=== PATIENT | female | born 1960 | race Caucasian/White ===

== ENCOUNTER → 2018-04-11 08:00 | Outpatient (CLI) | payer OTHER ==
[2014-08-28 13:37] VITALS: BMI 30.8
[~2018-04-11 08:00] MED LIST: ACCURETIC 20-121 TAB PO; BAYER CHEWABLE81 MG PO; DESERYL100 MG PO; DETROL LA4 MG PO; DULERA 100 MCG8.8 GM INH; FLOVENT DI50 MCG/DIS INH; FLUTICASONE PRO16 GM NS; GLUCOPHAGE1000 MG PO; JANUVIA100 MG PO; LIPITOR10 MG PO; LOVENOX40 MG/0.4 SQ; MULTIPLE VITAMI1 TA1 PO; NITROSTAT0.4 MG SL; PERCOCET 10/3251 TA1 PO; PROVENTIL HFA6.7 GM INH; PROZAC40 MG PO; RESTORIL15 MG PO; SOMA350 MG PO
== END | disposition home or self-care (01) ==
LOC: D.MAMMO 08:00
DX: Z12.31 Encounter for screening mammogram for malignant neoplasm of breast (principal)

== ENCOUNTER 2019-03-19 06:30 | Day surgery (SDC) | payer OTHER ==
[2019-03-16 12:26] LABS: HEMATOCRIT 39.8 % (36.0-48.0); HEMOGLOBIN 13.3 g/dL (12-16); MCH 27.9 pg (26.0-34.0); MCHC 33.4 g/dL (31.0-37.0); MCV 83.6 fL (80.0-100.0); MEAN PLATELET VOLUME 9.3 fL (7.4-10.4); RBC 4.76 10x6/uL (4.00-5.40); WBC 8.1 10x3/uL (4.8-10.8)
[2019-03-16 12:28] LABS: CALC OSMOLALITY 272 mosm/kg (275-300); CALCIUM 9.3 mg/dL (8.5-10.1); CARBON DIOXIDE 26.8 mmol/L (21.0-32.0); CHLORIDE - SERUM 99 mmol/L (98-107); CREATININE - SERUM 0.6 mg/dL (0.6-1.3); POTASSIUM - SERUM 3.7 mmol/L (3.5-5.1); SODIUM 137 mmol/L (136-145); UREA NITROGEN 6 mg/dL (7-18); eGFR NON AFRICAN AMERICAN > 90 mL/min (90-120)
[2019-03-16 12:30] LABS: GLUCOSE 112 mg/dL (74-106)
[~2019-03-19] VITALS: Ht 154.9 cm; Wt 71.7 kg
[~2019-03-19 06:30] MED LIST changes: +ATIVAN1 MG PO; +BACLOFEN20 M1 PO; +CBD OIL PO; +CHROMIUM PICO200 MC1 PO; +HYDRALAZINE HCL50 MG PO; +LIPITOR20 MG PO; +MERIBIN5 MG PO; +NORVASC10 MG PO; +SINGULAIR10 MG PO; +TRAMADOL HCL E100 M1 PO; +TRAZODONE HCL150 MG PO
[2019-03-19 07:30] VITALS: BP 141/80; Ht 154.9 cm; Wt 71.7 kg
[2019-03-19] MEDS ORDERED: HYDROCODON-ACE1 EAC7 PO (10:11)
[2019-03-19] MEDS ORDERED: CLEOCIN HCL300 MG PO (10:12)
--- NOTE | 2019-03-19 12:10 | NUR ---
1215 ICE PACKS PROVIDED FOR PT'S ABDOMEN, EXPLAINED TO BE INTERMITTANT, PT. EATING ICE CHIPS, DENIES NAUSEA.
== END 2019-03-19 13:10 | disposition home or self-care (01) ==
LOC: D.OPS 06:30 → D.PAN 08:15 → D.OPS 08:15
PROVIDERS: Anesthesiology; ATTEND Surgery
DX: K43.2 Incisional hernia without obstruction or gangrene (principal); Z01.812 Encounter for preprocedural laboratory examination

== ENCOUNTER → 2020-12-31 23:52 | Outpatient (CLI) | payer OTHER ==
[2019-03-19 07:30] VITALS: BMI 29.9
[~2020-12-31 23:52] MED LIST changes: +CLEOCIN HCL300 MG PO; +HYDROCODON-ACE1 EAC7 PO
== END | disposition home or self-care (01) ==
LOC: D.MAMMO 13:30
PROVIDERS: ATTEND Family Medicine Adult Medicine
DX: Z12.31 Encounter for screening mammogram for malignant neoplasm of breast (principal)